=== PATIENT | female | born 1995 | race Caucasian/White ===

== ENCOUNTER 2017-04-20 16:37 | Observation (INO) | payer OTHER ==
[~2017-04-20] VITALS: Ht 157.5 cm; Wt 61.2 kg
--- NOTE | 2017-04-20 16:50 | ED GI/GU/ABDOMINAL COMPLAINT ---
History of Present Illness General Chief Complaint: Abdominal Pain/Flank Pain Stated Complaint: RLQ ABD PAIN Source: patient, family Exam Limitations: no limitations Vital Signs & Intake/Output Vital Signs & Intake/Output Vital Signs Date Time Temp Pulse Resp B/P B/P Pulse O2 O2 Flow FiO2 Mean Ox Delivery Rate 04/20 2105 98.3 98 18 129/81 100 Room Air 04/20 1912 98.3 92 18 100/58 98 Room Air 04/20 1806 97.2 04/20 1725 97.2 04/20 1639 97.2 102 20 119/82 97 Room Air Allergies Coded Allergies: No Known Allergies (04/20/17) Reconcile Medications Medroxyprogesterone Acetate (Depo-Provera) 150 MG/ML VIAL 150 MG IM Q3M CONTROL (Reported) Triage Note: 21 YO FEMALE TO TRIAGE C/O RLQ PAIN, STATES PAIN IS WORSE WITH MOVMENT. DENIES NVD. DENIES URINARY S/S. DENIES CHANCE OF . STATES PAIN STARTED YESTERDAY AND HAS BEEN GETTING WORSE. Triage Nurses Notes Reviewed? yes LMP (ages 10-50): unknown ? n Is pt currently ? No Onset: Gradual Duration: day(s): Timing: recent history Quality/Severity: moderate Location: right lower quadrant HPI: 21YO female with history of spina bifida presents to emergency department complaining of right lower quadrant abdominal pain. Patient states that yesterday and generalized abdominal pain intermittently, pain was at its most severe last night and this morning. Today pain is located in right lower quadrant. Pain is worse when the patient walks. Patient was able to eat toast this morning around 6AM however has had anorexia today which is abnormal for her. Last bowel movement was last night and normal. Patient was in [place] for the past week, traveled home today and came straight here to the emergency department. Patient denies nausea, vomiting, diarrhea, fevers, chills, urinary symptoms. Last menstrual period Is unknown as patient is on Depo-Provera shot. Past History Travel History Traveled to [place] past 21 day No Medical History Any Pertinent Medical History? see below for history Neurological: spina bifida occulta EENT: NONE Cardiovascular: NONE Respiratory: NONE Gastrointestinal: NONE Hepatic: NONE Renal: NONE Musculoskeletal: NONE Psychiatric: NONE Endocrine: NONE Blood Disorders: NONE Cancer(s): NONE CHICKEN SEXER/Reproductive: NONE Surgical History Surgical History: spinal cyst removal Psychosocial History What is your primary language Upper Sorbian Tobacco Use: Never used Family History Hx Contributory? No Review of Systems Review of Systems Constitutional: Reports: no symptoms. EENTM: Reports: no symptoms. Respiratory: Reports: no symptoms. Cardiovascular: Reports: no symptoms. GI: Reports: see HPI. Genitourinary: Reports: no symptoms. Musculoskeletal: Reports: no symptoms. Skin: Reports: no symptoms. Neurological/Psychological: Reports: no symptoms. Hematologic/Endocrine: Reports: no symptoms. Immunologic/Allergic: Reports: no symptoms. All Other Systems: Reviewed and Negative Physical Exam Physical Exam General Appearance: well developed/nourished, no apparent distress, alert, awake Head: atraumatic, normal appearance Eyes: Bilateral: normal appearance. Ears, Nose, Throat, Mouth: hearing grossly normal Neck: normal inspection, supple, full range of motion Respiratory: normal breath sounds, no respiratory distress, lungs clear Cardiovascular: regular rate/rhythm Gastrointestinal: normal bowel sounds, soft, no organomegaly, RLQ tenderness at McBurney's point with gaurding, +Rosving's sign Back: normal inspection, normal range of motion Extremities: normal range of motion Neurologic/Psych: awake, alert, oriented x 3 Skin: intact, normal color, warm/dry Core Measures ACS in differential dx? No Sepsis Present: No Sepsis Focused Exam Completed? No Progress Differential Diagnosis: appendicitis, bowel obstruction, diverticulitis, ectopic , inflamm bowel dis, intrauterine , kidney stone, ovarian cyst , ovarian torsion, SBO, threatened AB, UTI/pyelo Plan of Care: Orders Procedure Date/time Status Add-on Test (ER Only) 04/20 1942 Active Add-on Test (ER Only) 04/21 1715 Active PARTIAL THROMBOPLASTIN TIME 04/20 171 Complete PROTHROMBIN TIME 04/20 171 Complete C-REACTIVE PROTEIN 04/20 171 Complete TYPE & SCREEN (NOT X-MATCH) 04/20 171 Complete URINE 04/20 164 Complete URINALYSIS 04/20 1649 Complete HIGH SENSITIVITY CRP 04/20 164 Complete HUMAN BETA HCG SCREEN 04/20 1649 Complete COMPREHENSIVE METABOLIC PANEL 04/20 1649 Complete CBC WITHOUT DIFFERENTIAL 04/20 1649 Complete Laboratory Tests 04/20/17 1815: Urine Color YEL, Urine Clarity CLEAR, Urine pH 6.0, Ur Specific [place] >= 1.030 , Urine Protein NEG, Urine Ketones 40 H, Urine Nitrite NEG, Urine Bilirubin NEG , Urine Urobilinogen 0.2, Ur Leukocyte Esterase NEG, Ur Microscopic SEDIMENT EXAMINED, Urine RBC 3-5, Urine WBC 1-3 H, Ur Epithelial Cells FEW, Urine Mucus PACKD H, Urine Hemoglobin SMALL H, Urine Glucose NEG, Urine Test NEGATIVE 04/20/17 1715: Anion Gap 13, Estimated GFR > 60, BUN/Creatinine Ratio 16.0, Glucose 80, Calcium 9.9, Total Bilirubin 0.8, AST 42 H, ALT 97 H, Alkaline Phosphatase 81, C- Reactive Prot, Quant 6.3 H, C-React Prot High Sens , Total Protein 7.5, Albumin 4.4, Globulin 3.1, Albumin/Globulin Ratio 1.4, Total Beta HCG NEGATIVE, PT 12.6 H, INR 1.15, APTT 29, CBC w Diff NO MAN DIFF REQ, RBC 4.47, MCV 92.8, MCH 31.1 H, MCHC 33.6, RDW 12.8, MPV 8.7, Gran % 75.2, Lymphocytes % 17.8 L, Monocytes % 6.3, Eosinophils % 0.4, Basophils % 0.3, Absolute Granulocytes 11.0 H, Absolute Lymphocytes 2.6, Absolute Monocytes 0.9 H, Absolute Eosinophils 0.1 , Absolute Basophils 0.1 Labs show elevated CRP, leukocytosis, mildly elevated liver enzymes. Patient states she reports some relief following IV Tylenol. She is in no acute distress, declines further pain medication. CT scan shows acute appendicitis. Patient started on IV Unasyn. Awaiting surgical consult. Vital signs are stable, patient comfortable. Spoke with surgical PA regarding this patient's acute appendicitis. surgical PA discussed patient with Dr. Craft who is present to see and evaluate patient. Plan for appendectomy tonight. Diagnostic Imaging: Viewed by Me: CT Scan. Discussed w/RAD: CT Scan. Initial ED EKG: none Departure Departure Disposition: STILL A PATIENT Condition: Stable Clinical Impression Primary Impression: Appendicitis Qualifiers: Appendicitis type: acute appendicitis Acute appendicitis type: unspecified acute appendicitis type Qualified Code: K35.80 - Unspecified acute appendicitis Departure Forms: Customer Survey General Discharge Information OR/GI Note Spoke With: Venancio TAPIA,Jaren Rosenberg ED Treatment Decision: AJ HOWE requires urgent operative management or an emergent procedure that cannot be performed in the Emergency Room setting. Acute appendicitis requiring emergent appendectomy Transport To: [facility]
[2017-04-20 17:23] LABS: ABSOLUTE BASOPHIL COUNT 0.1 /CUMM (0.0-0.2); ABSOLUTE EOSINOPHIL COUNT 0.1 /CUMM (0.0-0.7); ABSOLUTE LYMPH COUNT 2.6 /CUMM (1.2-3.4); ABSOLUTE MONOCYTE COUNT 0.9 /CUMM (0.10-0.60); BASOPHIL % 0.3 % (0.0-2.0); EOSINOPHIL % 0.4 % (0-5); GRANULOCYTE % 75.2 % (42.2-75.2); HEMATOCRIT 41.5 % (37-47); MEAN CORPUSCULAR HGB 31.1 PG (27.0-31.0); MEAN CORPUSCULAR HGB CONC 33.6 G/DL (33.0-37.0); MEAN CORPUSCULAR VOLUME 92.8 FL (81.0-99.0); MEAN PLATELET VOLUME 8.7 FL (7.4-10.4); PLATELET COUNT 235 /CUMM (130-400); RBC DISTRIBUTION WIDTH 12.8 % (11.5-14.5); RED BLOOD CELL CT 4.47 /CUMM (4.20-5.40); WHITE BLOOD CELL COUNT 14.6 /CUMM (4.8-10.8)
--- NOTE | 2017-04-20 19:30 | CT SCAN REPORT ---
EXAMINATION: CT ABDOMEN AND PELVIS WITH CONTRAST CLINICAL INFORMATION: Right lower quadrant abdominal pain. Positive Bernis point tenderness. COMPARISON: None available. TECHNIQUE: Multidetector volumetric imaging was performed of the abdomen and pelvis following IV administration of 94 mL of Optiray 320 intravenous contrast. Sagittal and coronal reformatted images were obtained on the technologist's workstation. FINDINGS: Imaging findings compatible with acute appendicitis. The appendix is enlarged, measuring up to 1.2 cm in size and there are adjacent periappendiceal inflammatory changes. Large and small bowel are unremarkable. There is no free air. No mesenteric adenopathy. The lung bases are clear. The liver, spleen, adrenal glands, gallbladder, and pancreas are normal. The kidneys exhibit symmetric nephrograms without evidence of hydronephrosis or nephrolithiasis. No focal renal lesions. The pelvic viscera are normal. No pelvic adenopathy. There are no acute osseous abnormalities. No significant soft tissue abnormality. IMPRESSION: Acute appendicitis. No periappendiceal abscess and no free air.
[2017-04-20 19:59] LABS: PT 12.6 SEC (9.4-12.5); PTT 29 SEC (25-37)
[2017-04-20] MEDS ORDERED: DEPO-PROVE150 MG/1 M IM (20:04)
--- NOTE | 2017-04-20 20:55 | History & Physical Pre-Op ---
Rosa Johns 04/20/172052: General Information and HPI History of Present Illness: 21yoF with 24hr hx of worsening abdominal pain. Pt was in [place] for the last week, and pain started yesterday. Pain was in midabd to lower rq. No n/v, no cp/sob. She had worsening pain, localized to her RLQ this am and has worsened in intensity. She landed at [facility] this evening, and came straight to the ED. She has no appetite, and last ate a peice of toast this am before her flight. 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 Past Family/Social History Psychosocial History Smoking Status: Never Smoked ETOH Use: occasional use Illicit Drug Use: denies illicit drug use Exam & Diagnostic Data Last 24 Hrs of Vital Signs/I&O Vital Signs Date Time Temp Pulse Resp B/P B/P Pulse O2 O2 Flow FiO2 Mean Ox Delivery Rate 04/20 1912 98.3 92 18 100/58 98 Room Air 04/20 1806 97.2 04/20 1725 97.2 04/20 1639 97.2 102 20 119/82 97 Room Air Physical Exam: gen- nad card- s1s2 rrr pulm- no audible wheeze abd- ttp rlq, no r/g, soft ext- calves soft nt bl Last 24 Hrs of Labs/Thomas: Laboratory Tests 04/20/171814: Urine Color YEL, Urine Clarity CLEAR, Urine pH 6.0, Ur Specific [place] >= 1.030 , Urine Protein NEG, Urine Ketones 40 H, Urine Nitrite NEG, Urine Bilirubin NEG , Urine Urobilinogen 0.2, Ur Leukocyte Esterase NEG, Ur Microscopic SEDIMENT EXAMINED, Urine RBC 3-5, Urine WBC 1-3 H, Ur Epithelial Cells FEW, Urine Mucus PACKD H, Urine Hemoglobin SMALL H, Urine Glucose NEG, Urine Test NEGATIVE 04/20/17 1715: Anion Gap 13, Estimated GFR > 60, BUN/Creatinine Ratio 16.0, Glucose 80, Calcium 9.9, Total Bilirubin 0.8, AST 42 H, ALT 97 H, Alkaline Phosphatase 81, C- Reactive Prot, Quant 6.3 H, C-React Prot High Sens , Total Protein 7.5, Albumin 4.4, Globulin 3.1, Albumin/Globulin Ratio 1.4, Total Beta HCG NEGATIVE, PT 12.6 H, INR 1.15, APTT 29, CBC w Diff NO MAN DIFF REQ, RBC 4.47, MCV 92.8, MCH 31.1 H, MCHC 33.6, RDW 12.8, MPV 8.7, Gran % 75.2, Lymphocytes % 17.8 L, Monocytes % 6.3, Eosinophils % 0.4, Basophils % 0.3, Absolute Granulocytes 11.0 H, Absolute Lymphocytes 2.6, Absolute Monocytes 0.9 H, Absolute Eosinophils 0.1 , Absolute Basophils 0.1 Diagnostic Data Other Results SERVICE DATE: 04/20/17-1715 EXAM TYPE: CAT - CT ABD & PELVIS W IV CONTRAST EXAMINATION: CT ABDOMEN AND PELVIS WITH CONTRAST CLINICAL INFORMATION: Right lower quadrant abdominal pain. Positive Bernis point tenderness. COMPARISON: None available. TECHNIQUE: Multidetector volumetric imaging was performed of the abdomen and pelvis following IV administration of 94 mL of Optiray 320 intravenous contrast. Sagittal and coronal reformatted images were obtained on the technologist's workstation. FINDINGS: Imaging findings compatible with acute appendicitis. The appendix is enlarged, measuring up to 1.2 cm in size and there are adjacent periappendiceal inflammatory changes. Large and small bowel are unremarkable. There is no free air. No mesenteric adenopathy. The lung bases are clear. The liver, spleen, adrenal glands, gallbladder, and pancreas are normal. The kidneys exhibit symmetric nephrograms without evidence of hydronephrosis or nephrolithiasis. No focal renal lesions. The pelvic viscera are normal. No pelvic adenopathy. There are no acute osseous abnormalities. No significant soft tissue abnormality. IMPRESSION: Acute appendicitis. No periappendiceal abscess and no free air. Assessment/Plan Assessment/Plan: A- 21yoF with acute appendicitis, stable P- OR for appendectomy. IV abx IVF, NPO dw Dr. Craft As Ranked By This Provider Problem List: 1. Appendicitis Jaren Craft MD 04/20/172117: Attending MD Review Statement Attending Statement Attending MD Statement: examined this patient, discuss w/resident/PA/OCCUPATIONAL HEALTH TECHNICIAN, reviewed images Attending Assessment/Plan: 21yo healthy woman with classic progression of abdominal pain for appendicitis. Symptoms began yesterday while on vacation in [place]. She came directly from [facility] airport to the ER. Examination reveals focal peritonitis in RLQ. WBC is 16k and CT images show markedly inflamed appendix without evidence for perforation. PLan for broad spectrum antibiotics and prompt laparoscopic appendectomy. Discussed risks of surgery including bleeding and recurrent infection. She agrees.
--- NOTE | 2017-04-20 21:15 | Admission Core Measures ---
Acute Coronary Syndrome (CM) ACS Core Measures Acute Coronary Syndrome Diagnosis No Congestive Heart Failure (NEW) CHF Core Measures Congestive Heart Failure Diagnosis No Cerebrovascular Accident (NEW) CVA Core Measures CVA/TIA Diagnosis No Venous Thromboembolism VTE Core Vani (View Protocol) VTE Risk Factors Surgery No Mechanical VTE Prophylaxis d/t N/A MechProphylax Ordered No VTE Pharm Prophylaxis d/t NA PharmProphylax ordered Problem List As ranked by this Provider includes Assessment & Plan 1. Appendicitis HOME MEDS Home Med List Medroxyprogesterone Acetate (Depo-Provera) 150 MG/ML VIAL 150 MG IM Q3M CONTROL (Reported)
--- NOTE | 2017-04-20 22:34 | Operative Report ---
Operative/Inv Procedure Report Surgery Date: 04/20/17 Name of Procedure: Laparoscopic appendectomy Pre-Operative Diagnosis: Acute appendicitis Post-Operative Diagnosis: Same Estimated Blood Loss: scant Surgeon/Logistics Associate: Jaren Craft M.D./Rosa DENNIS Anesthesia: general endotracheal tube Specimens: Appendix Operative Indication: 21-year-old young woman with acute appendicitis presents for resection Operative/Procedure Note Note: After consent patient is brought to the operating room and laid supine. General anesthesia was obtained his abdomen was prepped and draped. Skin above the umbilicus was after local anesthesia a curvilinear incision made sharply. We dissected through subcutaneous tissues tissues bluntly and identified the fascia. It was grasped with Ruston's and a fasciotomy created sharply. The peritoneum was entered sharply and a blunt Mcfadden port was placed. Pneumoperitoneum was achieved. 2, 5 mm ports were placed in the suprapubic region and left lower quadrant, after local anesthesia was instilled and under direct vision the camera. Patient placed in Trendelenburg and rotated towards the left. The abdomen was explored. There was a thickened and inflamed appendix in the right lower quadrant. There is no evidence of perforation. There was a small amount of clear ascitic fluid. Mesentery laterally was taken down with cautery thus mobilizing the appendix. The base was grasped with a Aashish clamp and window in the mesentery developed with a [place] dissector. The mesentery was divided with Endo DONOVAN Oliveira load. The base was divided with a reload. Appendix placed in Endo Catch bag and cinched up.The right lower quadrant and pelvis were then irrigated with normal saline. Hemostasis was adequate. Ports then removed and appendix delivered and passed off the field. The fascia was closed 0 Vicryl suture. Skin incisions closed with 4-0 Vicryl. Steri-Strips and sterile dressing applied. Sponge and needle counts are correct Findings: Suppurative appendicitis no perforation CC: Rox De Leon APRN
[2017-04-21] VITALS: BP 110/74
[2017-04-21 02:12] VITALS: BP 107/71
[2017-04-21 04:15] VITALS: BP 104/60
[2017-04-21 06:00] VITALS: BP 104/76
[2017-04-21 08:00] VITALS: BP 110/70
[2017-04-21] MEDS ORDERED: PERCOCET 5-3251 EACH PO (08:13)
--- NOTE | 2017-04-21 08:13 | PN- General Surgery ---
See Addendum Subjective Subjective: pain is "not too bad". Feeling well otherwise, no nausea no vomiting, tolerating her diet, has been out of bed to the bathroom. Objective Vital Signs and I&Os Vital Signs Date Time Temp Pulse Resp B/P B/P Pulse O2 O2 Flow FiO2 Mean Ox Delivery Rate 04/21 06 98.2 80 20 104/76 98 Room Air 04/21 0415 98.2 73 18 104/60 98 Room Air 04/21 0212 98.1 94 18 107/71 98 Room Air 04/21 0000 98.2 92 18 110/74 100 Room Air 04/20 2105 98.3 98 18 129/81 100 Room Air 04/20 1912 98.3 92 18 100/58 98 Room Air 04/20 1806 97.2 04/20 1725 97.2 04/20 1639 97.2 102 20 119/82 97 Room Air Intake & Output 04/21 1600 04/21 0800 04/21 0000 04/20 1600 04/20 0800 04/20 0000 Intake Total 1120 0 Output Total 500 0 Balance 620 0 Intake, IV 1000 Intake, Oral 120 0 Output, Urine 500 0 Patient 135 lb Weight Weight Reported by Patient Measurement Method Physical Exam: Well-developed well-nourished no apparent distress. HEENT: Atraumatic, extraocular motion intact Neck: Supple, no lymphadenopathy Respiratory: No respiratory distress Abdomen: Minimal distention. Dressings clean dry and intact. Tenderness in the epigastrium and right lower quadrant is mild and as expected. Normal bowel sounds. Extremities: No edema, no calf pain Neuro: Alert and oriented x3 Psych: Mood affect normal, normal memory normal judgment. Skin: Warm and dry, no rash on exposed skin Assessment/Plan Assessment/Plan Postop day #1 status post laparoscopic appendectomy secondary to appendicitis Continue observation status today, stable for discharge home if she is tolerating her diet and pain is controlled Outpatient follow-up in 7-10 days Discharge instructions discussed, patient understands and agrees with plan Core Measures Venous Thromboembolism VTE Risk Factors Surgery No Mechanical VTE Prophylaxis d/t N/A MechProphylax Ordered No VTE Pharm Prophylaxis d/t NA PharmProphylax ordered
--- NOTE | 2017-04-21 08:16 | Patient Discharge Instructions ---
Discharge Instructions General Discharge Information You were seen/treated for: Acute appendicitis You had these procedures: Laparoscopic appendectomy Watch for these problems: Worsening abdominal pain, nausea, vomiting, fever, redness or drainage from the wounds Do not soak the wound: Yes Daily wet to dry dressings: No No bath, but you may shower: Yes Other wound care: Change Band-Aids after 3 days, change when wet Special Instructions: No lifting over 10 pounds Diet Continue normal diet: Yes Activity Full Activity/No Limits: No Activity Self Limited: Yes Pounds, do NOT lift more than: 10 Acute Coronary Syndrome Inclusion Criteria At DC or during hospital stay patient has or had the following: ACS DIAGNOSIS No Discharge Core Measures Meds if any: Prescribed or Continued at Discharge Meds if any: NOT Prescribed or Continued at Discharge Congestive Heart Failure Inclusion Criteria At DC or during hospital stay patient has or had the following: CHF DIAGNOSIS No Discharge Core Measures Meds if any: Prescribed or Continued at Discharge Meds if any: NOT Prescribed or Continued at Discharge Cerebrovascular accident Inclusion Criteria At DC or during hospital stay patient has or had the following: CVA/TIA Diagnosis No Discharge Core Measures Meds if any: Prescribed or Continued at Discharge Meds if any: NOT Prescribed or Continued at Discharge Venous thromboembolism Inclusion Criteria VTE Diagnosis No VTE Type NONE VTE Confirmed by (Test) NONE Discharge Core Measures - Per Current guidelines, there needs to be overlap - treatment for the first 5 days of Warfarin therapy. - If discharged on Warfarin prior to 5 days of - overlap therapy, the patient will need to be - assessed for post discharge needs including - *Post discharge parental anticoagulation - *Warfarin and/or parental anticoagulation education - *Follow up date to check INR post discharge At least 5 days overlap therapy as Inpatient No Meds if any: Prescribed or Continued at Discharge Note: Overlap Therapy is Warfarin and Anticoagulant Meds if any: NOT Prescribed or Continued at Discharge
[2017-04-21 12:00] VITALS: BP 110/72
== END 2017-04-21 13:31 ==
LOC: ERH 16:37 → 2NA 22:46 → PACUH 22:46 → ENRESERV 23:02 → 2NA 23:37 → ENTRNSPT 04-21 13:00 → EDTRNSPTSTS 04-21 13:10 → CMPTRNSPT 04-21 13:25 → 2NA 04-21 13:31
PROVIDERS: Physician Assistant
DX: K35.80 Unspecified acute appendicitis (principal)
CPT/HCPCS: 6030; 74177; 81001; 81025; 96374; 96375; G0378; J0131; J1644; J2405; J7042